=== PATIENT | female | born 1955 | race Hispanic/Latino ===

== ENCOUNTER 2017-01-24 14:28 | Emergency (ER) | payer MEDICARE, MEDICAID ==
[~2017-01-24] VITALS: Ht 144.8 cm; Wt 49.0 kg
[~2017-01-24 14:28] MED LIST: ACIDOPHILU4 PO; ALLER-EASE180 MG PO; ALTOPREV20 MG PO; AMLODIPINE5 MG PO; AMOXICILLIN500 MG OR; AVAPRO300 MG OR; CALCIUM500 M6 PO; COZAAR100 MG OR; COZAAR25 MG OR; DIOVAN320 MG PO; EQ OMEPRAZOLE20 MG PO; GLUCOVANCE5 MG/500 M OR; GLYBURIDE5 MG OR; HUMULIN 70/30 SC; HYDROCHLOROT12.5 MG PO; LASIX 40 MG40 MG/TAB PO; LEVEMIR FLEXPEN SC; LORATADINE10 M1 PO; METFORMIN500 M2 OR; NOVOLIN 70/30 SC; PANTOPRAZOLE SO40 MG PO; PAROXETINE10 MG OR; PRANDIN0.5 MG OR; PROCARDIA XL30 MG OR; PROCRIT IM; PROCRIT SC; RANITIDINE150 M1 OR; TRAMADOL HCL50 MG OR; TRAMADOL HCL50 MG PO; VERAPAMIL180 M2 OR; VERELAN120 MG OR; VITAMIN D-3400 UNIT PO; ZOFRAN ODT4 MG PO; [UNRECOGNIZED DRUG - REMARK]
[2017-01-24 15:18] LABS: HEMOGLOBIN 12.1 g/dl (12.0-16.0); IMMATURE GRANULOCYTES 0.3 % (0.0-1.0); MEAN CORPUSCULAR HGB 33.9 pG CALC (26.0-32.0); MEAN CORPUSCULAR HGB CONC 34.6 g/L CALC (32.0-36.0); NEUT# 5.73 thou/uL (2.00-7.15); RED BLOOD COUNT 3.57 mill/uL (4.20-5.60); RED CELL DISTRI WIDTH 12.6 % (11.5-15.5)
[2017-01-24 15:47] LABS: ALBUMIN 3.2 g/dL (3.2-5.0); CALCIUM 8.4 mg/dL (8.4-10.2); CREATININE 3.5 mg/dL (0.5-1.0); TOTAL PROTEIN 5.8 g/dL (6.3-8.2)
[2017-01-24] MEDS ORDERED: PANTOPRAZOLE SO40 MG PO (17:48)
[2017-01-24] MEDS ORDERED: CARVEDILOL25 MG PO (17:48)
[2017-01-24] MEDS ORDERED: AVAPRO300 MG PO (17:48)
[2017-01-24] MEDS ORDERED: PHOSLO667 M1 PO (17:49)
[2017-01-24] MEDS ORDERED: SUCRALFATE1 GM PO (17:50)
[2017-01-24] MEDS ORDERED: CLONIDINE0.1 MG PO (17:50)
[2017-01-24] MEDS ORDERED: ZOFRAN ODT4 MG PO (17:50)
[2017-01-24 18:15] VITALS: BP 185/84
== END 2017-01-24 18:15 | disposition short-term general hospital (02) ==
LOC: ED 14:28
PROVIDERS: Emergency Medicine
DX: J18.9 Pneumonia, unspecified organism (principal); R79.89 Other specified abnormal findings of blood chemistry; R94.31 Abnormal electrocardiogram [ECG] [EKG]; R11.0 Nausea; R06.02 Shortness of breath; R07.9 Chest pain, unspecified; I10 Essential (primary) hypertension

== ENCOUNTER → 2017-12-15 | Outpatient (REF) | payer MEDICARE, MEDICAID ==
[~2017-12-15] VITALS: Ht 142.2 cm; Wt 46.7 kg
[~2017-12-15] MED LIST changes: +AVAPRO300 MG PO; +CARVEDILOL12.5 MG PO; +CARVEDILOL25 MG PO; +CLONIDINE0.1 MG PO; +LEVEMIR100 UNIT/M SC; +LIPITOR10 M1 PO; +LORATADINE10 M3 PO; +NIFEDIPINE ER60 M1 PO; +NOVOLOG MIX SC; +PHOSLO667 M1 PO; +RIFAMPIN300 MG PO; +SUCRALFATE1 GM PO; +VITAMIN D22000 UNIT PO
[2017-12-15 17:17] VITALS: BP 149/58
== END | disposition home or self-care (01) ==
LOC: PO 09:32 → ORM 10:30
PROVIDERS: ATTEND Surgery
DX: Z01.818 Encounter for other preprocedural examination (principal); Z12.11 Encounter for screening for malignant neoplasm of colon; E11.9 Type 2 diabetes mellitus without complications; I10 Essential (primary) hypertension; N19 Unspecified kidney failure; A15.9 Respiratory tuberculosis unspecified; Z99.2 Dependence on renal dialysis; Z90.49 Acquired absence of other specified parts of digestive tract; Z98.890 Other specified postprocedural states

== ENCOUNTER 2017-12-20 08:02 | Day surgery (SDC) | payer MEDICARE, MEDICAID ==
[2017-12-20 09:36] LABS: HEMOGLOBIN 12.5 g/dl (12.0-16.0); MEAN CELL VOLUME 102.3 fL CALC (80.0-100.0); MEAN CORPUSCULAR HGB 35.5 pG CALC (26.0-32.0); MEAN CORPUSCULAR HGB CONC 34.7 g/L CALC (32.0-36.0); NEUT# 1.67 thou/uL (2.00-7.15); RED BLOOD COUNT 3.52 mill/uL (4.20-5.60); RED CELL DISTRI WIDTH 14.6 % (11.5-15.5)
[2017-12-20 10:03] LABS: BILIRUBIN, TOTAL 0.6 mg/dL (0.0-1.4)
[2017-12-20 10:09] LABS: CREATININE 6.1 mg/dL (0.5-1.0); TOTAL PROTEIN 7.6 g/dL (6.3-8.2)
[2017-12-20 11:05] VITALS: BP 164/72
== END 2017-12-20 11:32 | disposition home or self-care (01) ==
LOC: ENDO 08:02
PROVIDERS: ATTEND Surgery
PROC: 0DJD8ZZ Inspection of Lower Intestinal Tract, Via Natural or Artificial Opening Endoscopic (ICD-10-PCS; principal; 2017-12-20)
DX: Z12.11 Encounter for screening for malignant neoplasm of colon (principal); E11.22 Type 2 diabetes mellitus with diabetic chronic kidney disease; I12.0 Hypertensive chronic kidney disease with stage 5 chronic kidney disease or end stage renal disease; N18.6 End stage renal disease; E78.5 Hyperlipidemia, unspecified

== ENCOUNTER 2018-02-10 16:24 | Emergency (ER) | payer MEDICARE, MEDICAID ==
[~2018-02-10] VITALS: Ht 142.2 cm; Wt 55.0 kg
[2018-02-10 17:50] LABS: MEAN CELL VOLUME 100.7 fL CALC (80.0-100.0); MEAN CORPUSCULAR HGB CONC 34.7 g/L CALC (32.0-36.0); NEUT# 2.74 thou/uL (2.00-7.15); RED BLOOD COUNT 2.83 mill/uL (4.20-5.60); RED CELL DISTRI WIDTH 13.4 % (11.5-15.5)
[2018-02-10 18:01] LABS: HEMATOCRIT 28.5 % (37.0-47.0); HEMOGLOBIN 9.9 g/dl (12.0-16.0)
[2018-02-10 18:10] LABS: ALBUMIN 3.6 g/dL (3.2-5.0); BILIRUBIN, TOTAL 1.3 mg/dL (0.0-1.4); TOTAL PROTEIN 6.8 g/dL (6.3-8.2)
[2018-02-10 18:11] LABS: CREATININE 2.9 mg/dL (0.5-1.0); POTASSIUM 3.8 mmol/l (3.5-5.1)
[2018-02-10] MEDS ORDERED: ANTI-FUNGAL12 EX (18:25)
[2018-02-10] MEDS ORDERED: RENVELA800 MG PO (18:29)
[2018-02-10 19:09] VITALS: BP 140/60
== END 2018-02-10 19:20 | disposition home or self-care (01) ==
LOC: ED 16:24
PROVIDERS: Emergency Medicine
DX: I12.0 Hypertensive chronic kidney disease with stage 5 chronic kidney disease or end stage renal disease (principal); N18.6 End stage renal disease; Z99.2 Dependence on renal dialysis; R51 Headache; E11.9 Type 2 diabetes mellitus without complications; Z79.4 Long term (current) use of insulin

== ENCOUNTER 2018-08-24 16:55 | Observation (INO) | payer MEDICARE, MEDICAID ==
[~2018-08-24] VITALS: Ht 142.2 cm; Wt 41.5 kg
[~2018-08-24 16:55] MED LIST changes: +ANTI-FUNGAL12 EX; +RENVELA800 MG PO
[2018-08-24 18:23] LABS: IMMATURE GRANULOCYTES 0.3 % (0.0-5.0); MEAN CELL VOLUME 102.1 fL CALC (80.0-100.0); MEAN CORPUSCULAR HGB CONC 32.3 g/L CALC (32.0-36.0); NEUT# 4.57 thou/uL (2.00-7.15); RED BLOOD COUNT 3.82 mill/uL (4.20-5.60); RED CELL DISTRI WIDTH 14.9 % (11.5-15.5)
[2018-08-24 18:28] LABS: ALBUMIN 4.2 g/dL (3.2-5.0); BILIRUBIN, TOTAL 0.9 mg/dL (0.0-1.4); TOTAL PROTEIN 7.5 g/dL (6.3-8.2)
[2018-08-24 18:29] LABS: HEMOGLOBIN 12.6 g/dl (12.0-16.0)
[2018-08-24 18:32] LABS: POTASSIUM 4.9 mmol/l (3.5-5.1)
[2018-08-24 21:58] VITALS: BP 182/69
[2018-08-25 04:34] VITALS: BP 162/54
[2018-08-25 07:55] VITALS: BP 156/57
[2018-08-25 10:24] LABS: HEMATOCRIT 34.8 % (37.0-47.0); HEMOGLOBIN 11.3 g/dl (12.0-16.0); IMMATURE GRANULOCYTES 0.3 % (0.0-5.0); MEAN CORPUSCULAR HGB 33.4 pG CALC (26.0-32.0); MEAN CORPUSCULAR HGB CONC 32.5 g/L CALC (32.0-36.0); NEUT# 8.73 thou/uL (2.00-7.15); RED BLOOD COUNT 3.38 mill/uL (4.20-5.60); RED CELL DISTRI WIDTH 15.1 % (11.5-15.5)
[2018-08-25 10:38] LABS: ALBUMIN 3.7 g/dL (3.2-5.0); BILIRUBIN, TOTAL 0.6 mg/dL (0.0-1.4); POTASSIUM 4.2 mmol/l (3.5-5.1); TOTAL PROTEIN 6.7 g/dL (6.3-8.2)
[2018-08-25 11:04] LABS: CREATININE 7.7 mg/dL (0.5-1.0)
[2018-08-25 11:08] LABS: TSH, 3RD GENERATION 1.94 uIU/mL (0.47 - 4.68)
[2018-08-25 14:13] VITALS: BP 180/79
[2018-08-25 19:25] VITALS: BP 174/71
[2018-08-25 20:46] VITALS: BP 162/68
[2018-08-26 04:53] VITALS: BP 119/52
[2018-08-26 05:07] LABS: HEMATOCRIT 31.2 % (37.0-47.0); HEMOGLOBIN 10.2 g/dl (12.0-16.0); IMMATURE GRANULOCYTES 0.3 % (0.0-5.0); MEAN CELL VOLUME 102.6 fL CALC (80.0-100.0); MEAN CORPUSCULAR HGB 33.6 pG CALC (26.0-32.0); MEAN CORPUSCULAR HGB CONC 32.7 g/L CALC (32.0-36.0); PLATELET COUNT 77 thou/uL (130-400); RED BLOOD COUNT 3.04 mill/uL (4.20-5.60); RED CELL DISTRI WIDTH 15.3 % (11.5-15.5)
[2018-08-26 05:22] LABS: MAGNESIUM 2.5 mg/dL (1.6-2.3); POTASSIUM 4.3 mmol/l (3.5-5.1)
[2018-08-26 05:47] LABS: MANUAL DIFFERENTIAL YES
[2018-08-26 05:48] LABS: PLATELET ESTIMATE MARKED DECREASE; TOXIC GRANULATION FEW
[2018-08-26 09:29] VITALS: BP 138/64
[2018-08-26 15:13] VITALS: BP 146/68
== END 2018-08-26 18:05 ==
LOC: ED 16:55 → ED-I 18:47 → ED 19:01 → MS2 19:02
PROVIDERS: Emergency Medicine; Nurse Practitioner Family; ADMIT Internal Medicine; ATTEND Internal Medicine
DX: A08.0 Rotaviral enteritis (principal); E11.22 Type 2 diabetes mellitus with diabetic chronic kidney disease; I12.0 Hypertensive chronic kidney disease with stage 5 chronic kidney disease or end stage renal disease; N18.6 End stage renal disease; I25.10 Atherosclerotic heart disease of native coronary artery without angina pectoris; D69.6 Thrombocytopenia, unspecified; E86.0 Dehydration; E78.5 Hyperlipidemia, unspecified; Z99.2 Dependence on renal dialysis; Z79.4 Long term (current) use of insulin; Z88.0 Allergy status to penicillin

== ENCOUNTER 2022-02-04 15:46 | Emergency (ER) | payer MEDICARE, MEDICAID ==
[2022-02-04] VITALS (7 sets, daily range): BP systolic 169–176; BP diastolic 70–77
[~2022-02-04] VITALS: Ht 142.2 cm; Wt 55.3 kg
== END 2022-02-04 20:39 | disposition home or self-care (01) ==
LOC: ED 15:46
PROC: 2W3DX1Z Immobilization of Left Lower Arm using Splint (ICD-10-PCS; principal; 2022-02-04)
DX: S52.502A Unspecified fracture of the lower end of left radius, initial encounter for closed fracture (principal); S52.612A Displaced fracture of left ulna styloid process, initial encounter for closed fracture; E11.22 Type 2 diabetes mellitus with diabetic chronic kidney disease; I12.0 Hypertensive chronic kidney disease with stage 5 chronic kidney disease or end stage renal disease; N18.6 End stage renal disease; I25.10 Atherosclerotic heart disease of native coronary artery without angina pectoris; E78.5 Hyperlipidemia, unspecified; W01.0XXA Fall on same level from slipping, tripping and stumbling without subsequent striking against object, initial encounter; Y92.009 Unspecified place in unspecified non-institutional (private) residence as the place of occurrence of the external cause; Z99.2 Dependence on renal dialysis; Z79.4 Long term (current) use of insulin